=== PATIENT | female | born 1975 | race Caucasian/White ===

== ENCOUNTER 2018-03-20 06:03 | Inpatient (IN) | payer OTHER, MEDICAID, SELFPAY ==
[2018-03-20 07:35] VITALS: BP 122/71; PULSE 107; RESP 18; TEMP 37.4; O2SAT 100
--- NOTE | 2018-03-20 07:55 | PC.NURSE ---
Pt arrived from Tuesday Hbr via ambulance with ovarian mass and pain. Pt states she was told surgery would be done today. Pt kept NPO. Requested shower and is now showering. Rates pain at 5/10. States if feels worse. O2 sats = 100% on RA.
[2018-03-20 07:57] VITALS: BMI 21.7
[2018-03-20] MEDS: DEXTROSE 5%-0.9% NS 1,000 ML 100 ML IV ×2 (08:26→22:10)
[2018-03-20] MEDS: OXYCODONE IR 5 MG TABLET PO (08:32)
[2018-03-20] MEDS: ACETAMINOPHEN 325 MG TABLET 650 MG PO (08:33)
[2018-03-20 10:06] LABS: Estimated Glomerular Filt Rate > 60.0 mL/min (>60)
[2018-03-20] MEDS: CLINDAMYCIN 900 MG/50 ML PIGGYBACK 50 MG IV ×2 (12:04→19:28)
[2018-03-20] MEDS: DOCUSATE 100 MG CAPSULE PO ×2 (12:05→19:34)
[2018-03-20] MEDS: OXYCODONE/ACETAMINOPHEN 5/325 TABLET 1 TAB PO (12:18)
--- NOTE | 2018-03-20 14:37 | PC.NURSE ---
Pt taken for IUD removal at Dr Lomeli's office but was unable to remove. Plan for removal tomorrow after surgery.
[2018-03-20] MEDS: IBUPROFEN 600 MG TABLET PO ×2 (15:58→22:12)
[2018-03-20 16:07] VITALS: BP 113/62; PULSE 95; RESP 20; TEMP 36.6; O2SAT 100
[2018-03-20] MEDS: GENTAMICIN 100 MG in SODIUM CHLORIDE 0.9% 100 ML 102.5 ML IV (16:56)
[2018-03-20] MEDS: LORazepam 0.5 MG TABLET PO (19:26)
--- NOTE | 2018-03-20 21:36 | PC.NURSE ---
Pt diaphoretic and restless mid shift-reporting the need to smoke and refusing the nicotine patch ordered stating she had one before and it made me sick and I was dry heaving. Spoke to the on-call MD, ativan po ordered and given with relief. Pt now resting quietly, RR equal/unlabored. Pt reports hx of PTSD. Pain managed well with po ibuprofen, refusing narcotics as they make her feel sick. IVF per MD order. Scant brown discharge reported at beginning of shift--otherwise free of any s/sx bleeding/cramping.
[2018-03-20 22:09] VITALS: BP 100/53; PULSE 82; RESP 18; TEMP 36.8; O2SAT 100
[2018-03-21] VITALS (15 sets, daily range): BP systolic 99–131; BP diastolic 58–81; PULSE 80–110; RESP 15–20; TEMP 36.5–37.6; O2SAT 96–99; BMI 21.7
[2018-03-21] MEDS: LORazepam 0.5 MG TABLET PO (00:41)
[2018-03-21] MEDS: CLINDAMYCIN 900 MG/50 ML PIGGYBACK 50 MG IV ×3 (04:28→20:47)
[2018-03-21] MEDS: GENTAMICIN 100 MG in SODIUM CHLORIDE 0.9% 100 ML 102.5 ML IV ×2 (05:27→18:09)
[2018-03-21 06:01] LABS: HEMOLYSIS < 15 (0-50)
[2018-03-21 06:02] LABS: BUN Creatinine Ratio 21.7 (6-22); Blood Urea Nitrogen 13 mg/dL (7-17); Calcium 8.7 mg/dL (8.4-10.2); Carbon Dioxide 23 mmol/L (22-32); Chloride 107 mmol/L (98-107); Estimated Glomerular Filt Rate > 60.0 mL/min (>60); Glucose 107 mg/dL (70-100); Sodium 139 mmol/L (137-145)
[2018-03-21 06:08] LABS: Add Manual Diff / Slide Review NO; Basophils Percent Auto 0.2 % (0-2); Eosinophils Percent Auto 0.6 % (2-4); Hematocrit 36.6 % (36-46); Lymphocytes Percent Auto 10.8 % (25-40); Mean Corpuscular HGB Conc 32.9 % (30-36); Mean Corpuscular Hemoglobin 29.4 PG (26-34); Mean Corpuscular Volume 89.5 fL (80-100); Monocytes Percent Auto 8.9 % (3-14); Neutrophils Absolute Auto 12600 /uL (3000-5900); Neutrophils Percent Auto 79.5 % (50-75); Platelet Count 244 X10^3/uL (150-400); Red Blood Cell Count 4.09 X10^6/uL (4.0-5.2); Red Cell Distribution Width 12.7 % (11.6-14.8); White Blood Cell Count 15.8 X10^3/uL (4.5-11.0)
--- NOTE | 2018-03-21 06:34 | PM.GYNHP.1 ---
History of Present Illness Narrative: Misty Saeed is a 42 year old female 6 para 3 who presented from [facility] in Tuesday with a right-sided tubo-ovarian abscess She presented to the ER after several days of right-sided pain. A CT revealed a tubo-ovarian abscess on the right side. Patient has an IUD in place. This was supposed to be removed approximately 6 years ago. [facility] Social History household members: spouse Smoking Status: Current every day smoker alcohol intake: former substance use type: marijuana Meds Home Medications Medication Instructions Recorded Confirmed Type No Known Home Medications 03/20/18 03/20/18 History Allergies Allergy/AdvReac Type Severity Reaction Status Date / Time Penicillin Allergy Intermediate Hives Uncoded 03/20/18 07:50 Latex Allergy Unknown Uncoded 07/20/17 12:01 Mercury Allergy Unknown Uncoded 07/20/17 12:01 Review of Systems Review of Systems All systems reviewed & are unremarkable except as noted in HPI and below Constitutional Constitutional: Reports anorexia, Reports chills, Reports lack of energy and Reports poor appetite Eyes Eyes: Reports system reviewed; no additional complaints, except as documented ENT Ears, Nose, Mouth, and Throat: Yes system reviewed; no additional complaints, except as documented and No difficulty swallowing Cardiovascular Cardiovascular: Reports system reviewed; no additional complaints, except as documented Respiratory Respiratory: Reports system reviewed and no additional complaints, except as documented Gastrointestinal Gastrointestinal: Reports abdominal pain, Reports bloating, Denies change in bowel habits, Denies change in stool character, Denies constipation, Reports cramping, Denies dysphagia, Denies loose stools, Reports nausea and Denies vomiting Genitourinary Genitourinary: Reports vaginal discharge (Thick yellowish green), Reports vaginal odor, Denies hematuria, Reports dyspareunia, Denies urinary frequency, Denies difficulty voiding, Denies urinary urgency and Denies flank pain Musculoskeletal Musculoskeletal: Reports system reviewed; no additional complaints, except as documented Integumentary/Breasts Skin/Breast: Reports system reviewed and no additional complaints, except as documented Neurologic Neurologic: Reports system reviewed and no additional complaints, except as documented Psychiatric Psychiatric: Reports system reviewed and no additional complaints, except as documented Endocrine Endocrine: Reports system reviewed and no additional complaints, except as documented Hematologic/Lymphatic Hematologic/Lymphatic: Reports system reviewed and no additional complaints, except as documented Allergic/Immunologic Allergic/Immunologic: Reports system reviewed and no additional complaints, except as documented Exam Vital Signs (past 8 hours): - 03/21/18 00:45 03/21/18 05:45 Temperature 98.6 F 98.1 F Pulse Rate 93 H 96 H Respiratory Rate 18 18 Blood Pressure 99/58 L 106/60 Pulse Oximetry 99 97 Narrative Exam Narrative: Generally: Patient lying in bed, no acute distress Lungs: Clear to auscultation bilaterally Cardiovascular: Regular rate and rhythm Abdomen: Soft, good bowel sounds. Guarding and rebound tenderness on the right External genitalia: Normal labia minora and majora. Normal urethral meatus. Normal Bartholin's and [place]'s glands. Vagina: A bivalve speculum was placed into the vagina there is thick yellow/green discharge coming from the cervical os. Cervix: Purulent discharge. IUD string is visible and grasped with a Dolphin nose grasper. Upon pulling the string came off from the IUD. There was a small amount of bleeding noted. An attempt was made to grasp the IUD but patient could not tolerate. Bimanual exam: A 7 week size anteverted uterus. Right adnexal fullness and tenderness. Objective Labs Result Diagrams: 03/21/18 05:16 03/21/18 05:16 Labs: Laboratory Results - last 24 hr 03/20/18 03/21/18 03/21/18 09:42 05:16 05:16 WBC 15.8 H RBC 4.09 Hgb 12.0 Hct 36.6 MCV 89.5 MCH 29.4 MCHC 32.9 RDW 12.7 Plt Count 244 Neut % (Auto) 79.5 H Lymph % (Auto) 10.8 L [place] % (Auto) 8.9 Eos % (Auto) 0.6 L Baso % (Auto) 0.2 Neut # (Auto) 59802 H Sodium 139 Potassium 4.0 Chloride 107 Carbon Dioxide 23 BUN 13 Creatinine 0.70 0.60 Estimated GFR > 60.0 > 60.0 BUN/Creatinine Ratio 21.7 Glucose 107 H Calcium 8.7 Assessment & Plan (1) Right tubo-ovarian abscess: Current visit: Yes Status: Acute (2) Attempted IUD removal, unsuccessful: Current visit: Yes Status: Acute Plan: Assessment/Plan Narrative: Assessment: 42-year-old 6 para 3 with a right tubo-ovarian abscess Retained IUD Plan: Cultures obtained Will attempt IUD removal in the operating room Quality VTE Deep Vein Thrombosis/Pulmonary Embolism Present on Admission: No
--- NOTE | 2018-03-21 06:42 | P.HPOB_ITS ---
History of Present Illness Narrative: Misty Saeed is a 42 year old female 6 para 3 who presented from [facility] in Tuesday with a right-sided tubo-ovarian abscess She presented to the ER after several days of right-sided pain. A CT revealed a tubo-ovarian abscess on the right side. Patient has an IUD in place. This was supposed to be removed approximately 6 years ago. [facility] Social History household members: spouse Smoking Status: Current every day smoker alcohol intake: former substance use type: marijuana Meds Home Medications Medication Instructions Recorded Confirmed Type No Known Home Medications 03/20/18 03/20/18 History Allergies Allergy/AdvReac Type Severity Reaction Status Date / Time Penicillin Allergy Intermediate Hives Uncoded 03/20/18 07:50 Latex Allergy Unknown Uncoded 07/20/17 12:01 Mercury Allergy Unknown Uncoded 07/20/17 12:01 Review of Systems Review of Systems All systems reviewed & are unremarkable except as noted in HPI and below Constitutional Constitutional: Reports anorexia, Reports chills, Reports lack of energy and Reports poor appetite Eyes Eyes: Reports system reviewed; no additional complaints, except as documented ENT Ears, Nose, Mouth, and Throat: Yes system reviewed; no additional complaints, except as documented and No difficulty swallowing Cardiovascular Cardiovascular: Reports system reviewed; no additional complaints, except as documented Respiratory Respiratory: Reports system reviewed and no additional complaints, except as documented Gastrointestinal Gastrointestinal: Reports abdominal pain, Reports bloating, Denies change in bowel habits, Denies change in stool character, Denies constipation, Reports cramping, Denies dysphagia, Denies loose stools, Reports nausea and Denies vomiting Genitourinary Genitourinary: Reports vaginal discharge (Thick yellowish green), Reports vaginal odor, Denies hematuria, Reports dyspareunia, Denies urinary frequency, Denies difficulty voiding, Denies urinary urgency and Denies flank pain Musculoskeletal Musculoskeletal: Reports system reviewed; no additional complaints, except as documented Integumentary/Breasts Skin/Breast: Reports system reviewed and no additional complaints, except as documented Neurologic Neurologic: Reports system reviewed and no additional complaints, except as documented Psychiatric Psychiatric: Reports system reviewed and no additional complaints, except as documented Endocrine Endocrine: Reports system reviewed and no additional complaints, except as documented Hematologic/Lymphatic Hematologic/Lymphatic: Reports system reviewed and no additional complaints, except as documented Allergic/Immunologic Allergic/Immunologic: Reports system reviewed and no additional complaints, except as documented Exam Vital Signs (past 8 hours): - 03/21/18 00:45 03/21/18 05:45 Temperature 98.6 F 98.1 F Pulse Rate 93 H 96 H Respiratory Rate 18 18 Blood Pressure 99/58 L 106/60 Pulse Oximetry 99 97 Narrative Exam Narrative: Generally: Patient lying in bed, no acute distress Lungs: Clear to auscultation bilaterally Cardiovascular: Regular rate and rhythm Abdomen: Soft, good bowel sounds. Guarding and rebound tenderness on the right External genitalia: Normal labia minora and majora. Normal urethral meatus. Normal Bartholin's and [place]'s glands. Vagina: A bivalve speculum was placed into the vagina there is thick yellow/ green discharge coming from the cervical os. Cervix: Purulent discharge. IUD string is visible and grasped with a Dolphin nose grasper. Upon pulling the string came off from the IUD. There was a small amount of bleeding noted. An attempt was made to grasp the IUD but patient could not tolerate. Bimanual exam: A 7 week size anteverted uterus. Right adnexal fullness and tenderness. Objective Labs Result Diagrams: 03/21/18 05:16 03/21/18 05:16 Labs: Laboratory Results - last 24 hr 03/20/18 03/21/18 03/21/18 09:42 05:16 05:16 WBC 15.8 H RBC 4.09 Hgb 12.0 Hct 36.6 MCV 89.5 MCH 29.4 MCHC 32.9 RDW 12.7 Plt Count 244 Neut % (Auto) 79.5 H Lymph % (Auto) 10.8 L [place] % (Auto) 8.9 Eos % (Auto) 0.6 L Baso % (Auto) 0.2 Neut # (Auto) 92673 H Sodium 139 Potassium 4.0 Chloride 107 Carbon Dioxide 23 BUN 13 Creatinine 0.70 0.60 Estimated GFR > 60.0 > 60.0 BUN/Creatinine Ratio 21.7 Glucose 107 H Calcium 8.7 Assessment & Plan (1) Right tubo-ovarian abscess: Current visit: Yes Status: Acute (2) Attempted IUD removal, unsuccessful: Current visit: Yes Status: Acute Plan: Assessment/Plan Narrative: Assessment: 42-year-old 6 para 3 with a right tubo-ovarian abscess Retained IUD Plan: Cultures obtained Will attempt IUD removal in the operating room Quality VTE Deep Vein Thrombosis/Pulmonary Embolism Present on Admission: No
[2018-03-21] MEDS: DEXTROSE 5%-0.9% NS 1,000 ML 100 ML IV (09:25)
[2018-03-21] MEDS: HYDROMORPHONE 1 MG INJ IV ×2 (10:07→13:27)
--- NOTE | 2018-03-21 10:23 | CM.DANOTE ---
DCP: assessment: case received, EMR reviewed and met with pt. Introduced self and role. Pt is a 42 year old female who admitted yesterday to care of Dr. Ej Lomeli after being sent from [facility]. Payer: [place] [employer]. Pt is very groggy and nods off during this initial meeting. She does confirm she and her partner Thai live in a treehouse...sounds like does not have to climb stairs to entry but she is very vague at this point. Pt going to OR today/planned early afternoon. Is being treatmetn isaias a R tubo ovarian abscess and an old IUD will be removed surgically. It is noted that pt carries dx of PTSD and her living situation is unclear at this point. Assured her that the d/c planning team will be talking with her again when she is clearer and feeling better. Consider a CM/social media job titles consult as POC unfolds. Discussed with colleague/LAURA Gutierrez.
--- NOTE | 2018-03-21 13:50 | SUR.HOLD ---
This author (RN) went to pt's room to bring pt. down to pre-op; noted pt. to be in significant pain. Asked pt. how bad the pain was she (the pt.) responded with 4-5, this was at 1315. Pt. moaning loudly and yelling out profanity due to the level of pain the pt. was experiencing. This author notified the RN that the pt. should be medicated before being taken down to pre-op, nurse agreed. Pt. pain was progressively getting worse within minutes. At 1325 pt. rated pain at 8-9, states (the pt) it was her right ovary. At 1327 pt. was medicated with 1 mg of dilauded iv with immediate relief. Pt. then brought down to pre-op holding. upon arrival to holding pt. rated pain at 2
--- NOTE | 2018-03-21 14:10 | PC.NURSE ---
1325 Pt gone to OR via bed. Med for c/o pain prior to going.
[2018-03-21] MEDS: LACTATED RINGERS 1,000 ML 42 ML IV (14:25)
--- NOTE | 2018-03-21 15:30 | SUR.OPER ---
Supine on padded OR bed, head on pillow, arms secured on padded arm boards at <90 degrees abduction, legs uncrossed, safety belt at thigh, tape over blanket over lower legs.
--- NOTE | 2018-03-21 16:23 | PC.NURSE ---
Pt arrived by back PACU @ 1600. A&Ox3, reporting no pain and no discharge. Cont. pulse ox on reading 99%. Spoke with MD, telephone order to resume all pre-op orders.
[2018-03-21 18:03] LABS: Gentamicin Trough < 0.6 ug/mL (0.0-2.0)
[2018-03-21] MEDS: GENTAMICIN TROUGH 1 REQUEST MISC (18:09)
[2018-03-21 20:11] LABS: Gentamicin Peak 4.7 ug/mL (5.0-8.0)
[2018-03-21] MEDS: DOCUSATE 100 MG CAPSULE PO (20:47)
[2018-03-21] MEDS: IBUPROFEN 600 MG TABLET PO (20:47)
[2018-03-22] MEDS: DEXTROSE 5%-0.9% NS 1,000 ML 100 ML IV ×2 (02:24→20:13)
[2018-03-22 03:00] VITALS: BP 134/73; PULSE 76; RESP 18; TEMP 36.6; O2SAT 99
[2018-03-22] MEDS: CLINDAMYCIN 900 MG/50 ML PIGGYBACK 50 MG IV ×3 (04:08→20:14)
[2018-03-22] MEDS: GENTAMICIN 140 MG in SODIUM CHLORIDE 0.9% 100 ML 103.5 ML IV (06:33)
--- NOTE | 2018-03-22 06:50 | PM.PNPO.1 ---
Subjective Date Patient Seen: 03/21/18 Time Patient Seen: 13:30 Interval history: Patient is a 42-year-old 6 para 3 who was admitted for a right tubo-ovarian abscess An attempt was made to remove her IUD yesterday but the string came off of the IUD. She could not tolerate the IUD removal in the office. Had increased pain last night. No nausea or vomiting. Exam Vital Signs (past 8 hours): - 03/21/18 23:51 03/22/18 03:00 Temperature 97.7 F 97.9 F Pulse Rate 80 76 Respiratory Rate 16 18 Blood Pressure 103/65 134/73 Pulse Oximetry 98 99 Oxygen Delivery Method Room Air Oxygen Flow Rate 0 Narrative Exam Narrative: Generally: Patient lying in bed, no acute distress Lungs: Clear to auscultation bilaterally Cardiovascular: Regular rate and rhythm Abdomen: Soft and flat. Good bowel sounds. Still with tenderness on the right side. Extremities: Negative Homans Objective Labs Result Diagrams: 03/21/18 05:16 03/21/18 05:16 Labs: Laboratory Results - last 24 hr 03/21/18 03/21/18 17:15 19:40 Gentamicin Peak 4.7 L Gentamicin Trough < 0.6 Assessment & Plan Post-op (1) Right tubo-ovarian abscess: Current Visit: Yes Status: Acute (2) Attempted IUD removal, unsuccessful: Current Visit: Yes Status: Acute Assessment and plan: Assessment: 42-year-old 6 para 3 with a right tubo-ovarian abscess IUD in place, unable to remove in the office Plan: To the operating room later this afternoon for IUD removal Postoperative Procedures Operation Date: 03/21/18 14:30 Actual Procedures Side Surgeon p Intrauterine Device Insertion Removal Poornima Lomeli MD Quality VTE Deep Vein Thrombosis/Pulmonary Embolism Present on Admission: No
--- NOTE | 2018-03-22 06:53 | PM.GYNOP.1 ---
Operative Date/Time/Diagnoses Date of procedure: 03/21/18 Time of procedure: 15:15 Pre-op diagnosis: Retained IUD Patient unable to tolerate removal in the office Post-op diagnosis: same Procedure: Procedures Operation Date: 03/21/18 14:30 Actual Procedures Side Surgeon p Intrauterine Device Insertion Removal Poornima Lomeli MD Indications: Retained IUD Patient unable to tolerate removal in the office Surgeon: Poornima Lomeli Anesthesia Type: General (LMA) Operative Notes Findings: IUD stuck in the lower uterine segment Closure Type: not applicable Specimen(s): none Estimated blood loss (mL): 3 Blood products transfused: none Procedure in detail: After informed consent was obtained, the patient was taken to the operating room where she was placed in the dorsal supine position. After adequate LMA general anesthesia was achieved, she was placed in the dorsal lithotomy position, and prepped and draped in the usual sterile fashion. A time-out was performed. A bivalve speculum was placed into the vagina. A single-tooth tenaculum was placed on the anterior lip of the cervix. A polyp forceps was placed into the uterus in an attempt to remove the IUD but was unsuccessful. The cervical os was dilated to the # 7 Hegar dilator. Upon pulling out the dilator, the IUD came with the Hegar dilator. The single-tooth tenaculum was removed from the anterior lip of the cervix. The bivalve speculum was removed from the vagina. Sponge, lap, and instrument counts were correct x2. The patient tolerated the procedure well, and was taken to PACU in stable condition. Complications: none Post-operative Condition: stable Disposition: PACU Plan for aftercare: To acute care after recovery
[2018-03-22 07:30] VITALS: BP 113/63; PULSE 73; RESP 16; TEMP 37; O2SAT 97
[2018-03-22 11:15] VITALS: BP 119/66; PULSE 85; RESP 16; TEMP 36.8; O2SAT 98
[2018-03-22 11:22] LABS: Add Manual Diff / Slide Review NO; Basophils Percent Auto 0.1 % (0-2); Eosinophils Percent Auto 0.2 % (2-4); Hematocrit 34.3 % (36-46); Hemoglobin 11.5 g/dL (12.0-16.0); Lymphocytes Percent Auto 5.1 % (25-40); Mean Corpuscular HGB Conc 33.6 % (30-36); Mean Corpuscular Hemoglobin 29.8 PG (26-34); Mean Corpuscular Volume 88.9 fL (80-100); Monocytes Percent Auto 4.5 % (3-14); Neutrophils Absolute Auto 21600 /uL (3000-5900); Neutrophils Percent Auto 90.1 % (50-75); Platelet Count 290 X10^3/uL (150-400); Red Blood Cell Count 3.86 X10^6/uL (4.0-5.2); Red Cell Distribution Width 12.9 % (11.6-14.8)
[2018-03-22] MEDS: DOCUSATE 100 MG CAPSULE PO ×2 (11:32→20:14)
--- NOTE | 2018-03-22 14:46 | PC.NURSE ---
1430 Pt has remained on bedrest all this shift except for BRP. Pt has denied pain. Dr Lomeli in earlier to assess Pt and the lab results. updated on the Pts LUE swelling from a infiltrated IV last PM. Have kept the arm up on pillows & warm blankets to arm as well. Pt refuses a [employer]IL[employer] regarding Pt being homeless. IVF cont to IV site RFA, Pt with poor/fair appetite. Pt sleeping most the time.
[2018-03-22] MEDS: IBUPROFEN 600 MG TABLET PO ×2 (16:00→21:18)
[2018-03-22 17:07] VITALS: BP 128/79; PULSE 79; RESP 17; TEMP 36.8; O2SAT 92
[2018-03-22 18:14] LABS: Gentamicin Trough 0.6 ug/mL (0.0-2.0)
[2018-03-22] MEDS: GENTAMICIN 140 MG in SODIUM CHLORIDE 0.9% 100 ML 103 ML IV (18:34)
[2018-03-22 20:48] LABS: Gentamicin Peak 6.9 ug/mL (5.0-8.0)
[2018-03-22 23:45] VITALS: BP 131/76; PULSE 84; RESP 16; TEMP 36.9; O2SAT 99
[2018-03-23] MEDS: CLINDAMYCIN 900 MG/50 ML PIGGYBACK 50 MG IV ×2 (03:54→12:32)
[2018-03-23 03:57] VITALS: BP 135/85; PULSE 82; RESP 15; TEMP 36.9; O2SAT 97
[2018-03-23] MEDS: IBUPROFEN 600 MG TABLET PO ×2 (04:44→13:33)
[2018-03-23] MEDS: GENTAMICIN 140 MG in SODIUM CHLORIDE 0.9% 100 ML 103 ML IV (05:41)
[2018-03-23 07:40] VITALS: BP 131/82; PULSE 87; RESP 16; TEMP 36.6; O2SAT 99
[2018-03-23] MEDS: DEXTROSE 5%-0.9% NS 1,000 ML 100 ML IV (08:31)
[2018-03-23] MEDS: ACETAMINOPHEN 325 MG TABLET 650 MG PO (08:34)
[2018-03-23 09:11] LABS: Add Manual Diff / Slide Review NO; Eosinophils Percent Auto 0.2 % (2-4); Hematocrit 32.3 % (36-46); Hemoglobin 10.9 g/dL (12.0-16.0); Lymphocytes Percent Auto 13.9 % (25-40); Mean Corpuscular HGB Conc 33.7 % (30-36); Mean Corpuscular Hemoglobin 29.5 PG (26-34); Mean Corpuscular Volume 87.5 fL (80-100); Monocytes Percent Auto 8.5 % (3-14); Neutrophils Absolute Auto 10600 /uL (3000-5900); Neutrophils Percent Auto 76.4 % (50-75); Platelet Count 304 X10^3/uL (150-400); Red Blood Cell Count 3.69 X10^6/uL (4.0-5.2); Red Cell Distribution Width 13.1 % (11.6-14.8); White Blood Cell Count 13.9 X10^3/uL (4.5-11.0)
[2018-03-23] MEDS: HYDROMORPHONE 1 MG INJ IV (10:00)
[2018-03-23] MEDS: OXYCODONE/ACETAMINOPHEN 5/325 TABLET 1 TAB PO (13:37)
--- NOTE | 2018-05-11 16:18 | PM.DS.1 ---
History of Present Illness Date Patient Seen: 03/23/18 Time Patient Seen: 13:30 Chief complaint: Ovarian Mass Narrative: Patient is a 42-year-old who was admitted on 03/20/2019 with a right tubo-ovarian abscess. She had an IUD in place. An attempt was made to remove this in the office but patient was unable to tolerate it. This was removed under anesthesia on 03/21/2019. Patient was started on IV antibiotics upon admission. These continued through to discharge on 03/23/2019. She was sent home on oral antibiotics. Over the course of her hospitalization, her right lower quadrant pain significantly decreased. Discharge Providers Date of admission: 03/20/18 06:03 Discharge provider: Poornima Lomeli MD Discharge Date: 03/23/18 Summary Discharge Diagnosis: Right tubo-ovarian abscess Retained IUD Hospital Course: Patient was admitted on 03/20/2019 with a right tubo-ovarian abscess. She was started on IV antibiotics. She had an IUD in place. This was unable to be removed in the office on 03/20/2019. On 03/21/2019 she was taken to the operating room the IUD was removed under anesthesia. Over the course of her hospitalization her right lower quadrant pain significantly decreased. She was discharged home on oral antibiotics to follow up at 2 weeks. She was sent home on metronidazole and doxycycline. Exam Vital Signs (past 8 hours): Oxygen Delivery Method Room Air Oxygen Flow Rate 0 Narrative Exam Narrative: Generally: A well-developed, well-nourished white female, no acute distress Abdomen: Soft and flat. No guarding or rebound tenderness. Objective Labs Result Diagrams: 03/23/18 09:00 03/21/18 05:16 Discharge Plan Discharge Plan Patient Disposition: Home Discharge comment: Call with fever, chills, worsening abdominal pain, nausea or vomiting Call [phone] Discharge Med Rec/Prescriptions Prescriptions: New doxycycline hyclate 100 mg capsule 100 mg PO BID Qty: 28 RF: 0 metronidazole [Flagyl] 500 mg tablet 500 mg PO BID Qty: 28 RF: 0 acetaminophen-codeine [Tylenol-Codeine #3] 300-30 mg tablet 1 tab PO Q4-6H PRN (Reason: pain) Qty: 20 RF: 0 ibuprofen 600 mg tablet 600 mg PO TID PRN (Reason: pain) Qty: 30 RF: 2 No Action No Known Home Medications RF: 0 Follow up/Referrals: Poornima Lomeli MD [Physician] - 1 Month (please call & schedule a 1 month hospital follow up with dr lomeli [phone]) Provider Discharge Instructions Diet: Diet as Tolerated Activity: No intercourse until follow up Skin/Wound/Dressing Care Report to your healthcare provider any signs of infection, such as:: chills, fever, night sweats, increased pain and unusual drainage Visit Report/Discharge Packet Instructions: DI for Intrauterine Device Removal, Acetaminophen and Codeine, Doxycycline, Metronidazole Visit Report Forms: Stroke Signs & Symptoms Discharge Data Attending Provider: Poornima Lomeli Admit Date/Time: 03/20/18 06:03 Discharges patient from system. Discharge Date/Time: 03/23/18 14:15 Quality VTE Deep Vein Thrombosis/Pulmonary Embolism Present on Admission: No
--- NOTE | 2018-05-11 16:22 | P.DS_ITS ---
History of Present Illness Date Patient Seen: 03/23/18 Time Patient Seen: 13:30 Chief complaint: Ovarian Mass Narrative: Patient is a 42-year-old who was admitted on 03/20/2019 with a right tubo-ovarian abscess. She had an IUD in place. An attempt was made to remove this in the office but patient was unable to tolerate it. This was removed under anesthesia on 2018. Patient was started on IV antibiotics upon admission. These continued through to discharge on 03/23/2019. She was sent home on oral antibiotics. Over the course of her hospitalization, her right lower quadrant pain significantly decreased. Discharge Providers Date of admission: 03/20/18 06:03 Discharge provider: Poornima Lomeli MD Discharge Date: 03/23/18 Summary Discharge Diagnosis: Right tubo-ovarian abscess Retained IUD Hospital Course: Patient was admitted on 03/20/2019 with a right tubo-ovarian abscess. She was started on IV antibiotics. She had an IUD in place. This was unable to be removed in the office on 03/20/2019. On 03/21/2019 she was taken to the operating room the IUD was removed under anesthesia. Over the course of her hospitalization her right lower quadrant pain significantly decreased. She was discharged home on oral antibiotics to follow up at 2 weeks. She was sent home on metronidazole and doxycycline. Exam Vital Signs (past 8 hours): Oxygen Delivery Method Room Air Oxygen Flow Rate 0 Narrative Exam Narrative: Generally: A well-developed, well-nourished white female, no acute distress Abdomen: Soft and flat. No guarding or rebound tenderness. Objective Labs Result Diagrams: 03/23/18 09:00 03/21/18 05:16 Discharge Plan Discharge Plan Patient Disposition: Home Discharge comment: Call with fever, chills, worsening abdominal pain, nausea or vomiting Call [phone] Discharge Med Rec/Prescriptions Prescriptions: New doxycycline hyclate 100 mg capsule 100 mg PO BID Qty: 28 RF: 0 metronidazole [Flagyl] 500 mg tablet 500 mg PO BID Qty: 28 RF: 0 acetaminophen-codeine [Tylenol-Codeine #3] 300-30 mg tablet 1 tab PO Q4-6H PRN (Reason: pain) Qty: 20 RF: 0 ibuprofen 600 mg tablet 600 mg PO TID PRN (Reason: pain) Qty: 30 RF: 2 No Action No Known Home Medications RF: 0 Follow up/Referrals: Poornima Lomeli MD [Physician] - 1 Month (please call & schedule a 1 month hospital follow up with dr lomeli [phone]) Provider Discharge Instructions Diet: Diet as Tolerated Activity: No intercourse until follow up Skin/Wound/Dressing Care Report to your healthcare provider any signs of infection, such as:: chills, fever, night sweats, increased pain and unusual drainage Visit Report/Discharge Packet Instructions: DI for Intrauterine Device Removal, Acetaminophen and Codeine, Doxycycline, Metronidazole Visit Report Forms: Stroke Signs & Symptoms Discharge Data Attending Provider: Poornima Lomeli Admit Date/Time: 03/20/18 06:03 Discharges patient from system. Discharge Date/Time: 03/23/18 14:15 Quality VTE Deep Vein Thrombosis/Pulmonary Embolism Present on Admission: No
== END 2018-03-23 14:15 | disposition home or self-care (01) | DRG 532 ==
PROVIDERS: Admitting Provider Obstetrics & Gynecology; Visit Provider Obstetrics & Gynecology
PROC: 0UPD7HZ Removal of Contraceptive Device from Uterus and Cervix, Via Natural or Artificial Opening (ICD-10-PCS; principal; 2018-03-21 14:30)
DX: T83.39XA Other mechanical complication of intrauterine contraceptive device, initial encounter (principal); N70.93 Salpingitis and oophoritis, unspecified; F17.210 Nicotine dependence, cigarettes, uncomplicated
CPT/HCPCS: 36415; 80048; 80170; 82565; 85025; 99406; J1100; J1170; J2405; J2704; J3010

== ENCOUNTER → 2018-03-20 17:07 | Outpatient (CLI) | payer OTHER, MEDICAID, SELFPAY ==
[2018-03-20 07:57] VITALS: BMI 21.7
== END ==
PROVIDERS: Visit Provider Obstetrics & Gynecology
DX: N89.8 Other specified noninflammatory disorders of vagina (principal)
CPT/HCPCS: 87070; 87075; 87077; 87205

== ENCOUNTER 2020-10-28 10:06 | Emergency (ER) | payer OTHER, MEDICAID, SELFPAY ==
[2020-10-28] VITALS (9 sets, daily range): BP systolic 119–153; BP diastolic 77–92; PULSE 103–125; RESP 18–24; TEMP 37.7; O2SAT 99–100; BMI 21.7
--- NOTE | 2020-10-28 10:25 | ED.ABDPAIN ---
HPI - Abdominal Pain General Chief Complaint: Abdominal Pain Stated Complaint: MASSIVE TUMOR ON RIGHT OVARY Time Seen by Provider: 10/28/20 10:12 Source: patient Mode of arrival: Ambulatory Limitations: no limitations History of Present Illness HPI narrative: Patient is a 45-year-old female who has a history of a right tubo-ovarian abscess secondary to a dislodged IUD in 2019 presenting today with right flank pain and right lower quadrant pain. Ongoing for the last day or so. She says it is constant in nature but does have sharp spikes. She occasionally feels nauseous. She has some flank pain that seems to radiate around to her lower abdomen. She is afebrile but currently tachycardic. She actually says it started fiber 6 days ago with UTI like symptoms. She states hydrated and drink cranberry juice and cranberry pills. And then started having right-sided flank pain. Denies any chest pain or palpitations no shortness of breath. Related Data Previous Rx's Medication Instructions Recorded acetaminophen 300 mg-codeine 30 mg 1 tab PO Q4-6H PRN #20 tab 03/23/18 tablet (Tylenol-Codeine #3) doxycycline hyclate 100 mg capsule 100 mg PO BID #28 cap 03/23/18 ibuprofen 600 mg tablet 600 mg PO TID PRN #30 tab 03/23/18 metronidazole 500 mg tablet 500 mg PO BID #28 tab 03/23/18 (Flagyl) cefdinir 300 mg capsule 300 mg PO Q12H #20 cap 10/28/20 Allergies Allergy/AdvReac Type Severity Reaction Status Date / Time Penicillins Allergy Intermediate Hives Unverified 03/21/18 20:33 latex Allergy Unknown Unverified 03/21/18 20:33 Mercury Allergy Unknown Uncoded 07/20/17 12:01 Review of Systems Review of Systems Narrative: GENERAL: Denies chills, fatigue, malaise, fever, sweats, travel HEENT: Denies sinus pain, ear pain, sore throat, difficulty swallowing, neck pain RESPIRATORY: Denies dyspnea, cough, wheezing, hemoptysis, sputum. CARDIOVASCULAR: Denies chest pain, palpitations, orthopnea, edema GASTROINTESTINAL: + nausea,+ vomiting,+ abdominal pain : Right flank pain, see HPI MUSCULOSKELETAL: Denies weakness, joint pain, or bony pain SKIN: No rash, no erythema, no pruritus NEUROLOGIC: Denies weakness, dizziness, headache, numbness, change in speech, confusion PSYCHIATRIC: No concerning psychosocial issues. 12 point review of systems is negative except for those stated above and HPI Patient History Social History (Updated 03/21/18 @ 06:36 by Poornima Lomeli MD) household members: spouse Smoking Status: Current every day smoker alcohol intake: former substance use type: marijuana Smoking Status: Current every day smoker alcohol intake frequency: 0-2 drinks per day Substance Use Type: marijuana Exam Initial Vital Signs Initial Vital Signs: Vital Signs Temperature 99.8 F H 10/28/20 10:14 Pulse Rate 125 H 10/28/20 10:14 Respiratory Rate 20 10/28/20 10:14 Blood Pressure 153/92 H 10/28/20 10:14 Pulse Oximetry 99 10/28/20 10:14 GENERAL: Alert 45-year-old female appears uncomfortable HEENT: Head atraumatic,EOMI, pupils reactive, face symmetric, moist mucous membranes CARDIOVASCULAR: Regular rate and rhythm without murmurs, rubs or gallops. RESPIRATORY: Breath sounds equal bilaterally, no wheezes rales or rhonchi. ABDOMEN: Soft right lower quadrant tenderness no guarding no rebound negative Ramirez sign no right upper quadrant tenderness : Right CVA tenderness EXTREMITIES: Normal range of motion, no clubbing or edema. Neurovascularly intact NEUROLOGICAL: Alert and oriented x4.Normal gait and speech. SKIN: Warm, dry, no laceration, no petechiae, no rashes or lesions. Course Orders Ordered: ED Orders 10/28/20 11:06 Blood Culture Stat Discontinued Medications Sodium Chloride (Normal Saline 0.9%) 500 mls @ 1,000 mls/hr IV BOLUS ONE Stop: 10/28/20 10:53 Last Infusion: 10/28/20 12:30 Dose: 0 mls/hr Documented by: Admin: 10/28/20 11:15 Dose: 1,000 mls/hr Documented by: ATAYLOR Ceftriaxone Sodium 1,000 mg/ (Sodium Chloride) 100 mls @ 200 mls/hr IV NOW ONE Stop: 10/28/20 10:41 Last Infusion: 10/28/20 12:14 Dose: 0 mls/hr Documented by: Admin: 10/28/20 11:15 Dose: 200 mls/hr Documented by: ATAYLOR Sodium Chloride (Normal Saline 0.9%) 1,000 mls @ 1,000 mls/hr IV BOLUS ONE Stop: 10/28/20 13:27 Last Infusion: 10/28/20 13:31 Dose: 0 mls/hr Documented by: Admin: 10/28/20 12:31 Dose: 1,000 mls/hr Documented by: MILA Ketorolac Tromethamine (Ketorolac 30 Mg/Ml Vial) 30 mg IV NOW ONE Stop: 10/28/20 10:25 Last Admin: 10/28/20 11:14 Dose: 30 mg Documented by: MILA Ondansetron HCl (Ondansetron 4 Mg/2 Ml Inj) 4 mg IV NOW ONE Stop: 10/28/20 10:25 Last Admin: 10/28/20 11:14 Dose: 4 mg Documented by: MILA Vital Signs Vital signs: Vital Signs - 8 hr 10/28/20 12:00 10/28/20 12:30 10/28/20 13:00 Pulse Rate 110 H 104 H 103 H Respiratory Rate 20 20 21 Blood Pressure 119/78 127/77 Pulse Oximetry 99 100 100 10/28/20 13:30 Pulse Rate 103 H Respiratory Rate 24 Blood Pressure Pulse Oximetry 100 MDM - Abdominal Pain Lab Data Result diagrams: 10/28/20 10:45 10/28/20 10:45 Labs: Lab Results 10/28/20 10/28/20 10/28/20 Range/Units 10:35 10:45 10:45 WBC 18.2 H (4.5-11.0) X10^3/uL RBC 4.43 (4.0-5.2) X10^6/uL Hgb 13.4 (12.0-16.0) g/dL Hct 39.8 (36-46) % MCV 89.9 (80-100) fL MCH 30.4 (26-34) PG MCHC 33.8 (30-36) % RDW 12.8 (11.6-14.8) % Plt Count 211 (150-400) X10^3/uL Neut % (Auto) 85.9 H (50-75) % Lymph % (Auto) 4.7 L (25-40) % [place] % (Auto) 9.0 (3-14) % Eos % (Auto) 0.1 L (2-4) % Baso % (Auto) 0.3 (0-2) % Neut # (Auto) 54407 H (8148-7053) /uL Lymph # (Auto) 900 L (7154-3770) /uL [place] # (Auto) 1600 H (0-900) /uL Eos # (Auto) 0 (0-450) /uL Baso # (Auto) 100 (0-100) /uL Sodium 133 L (137-145) mmol/L Potassium 3.7 (3.4-5.1) mmol/L Chloride 102 (98-107) mmol/L Carbon Dioxide 26 (22-32) mmol/L BUN 11 (7-17) mg/dL Creatinine 0.72 (0.52-1.04) mg/dL Estimated GFR > 60.0 (>60) mL/min BUN/Creatinine Ratio 15.3 (6-22) Glucose 119 H (70-100) mg/dL Lactate (0.7-2.1) mmol/L Calcium 8.8 (8.4-10.2) mg/dL Total Bilirubin 0.5 (0.2-1.3) mg/dL AST 26 (14-36) IU/L ALT 25 (<35) IU/L Alkaline Phosphatase 76 (38-126) U/L Total Protein 6.8 (6.3-8.2) g/dL Albumin 3.5 (3.5-5.0) g/dL Globulin 3.3 (1.7-4.1) g/dL Albumin/Globulin Ratio 1.1 (1.0-2.8) Lipase 20 L (23-300) U/L Urine RBC 1-5/hpf (0-5/HPF) Urine WBC >100/hpf H (0-5/HPF) Ur Squamous Epith Cells 1-5 /hpf (0-5/HPF) Urine Bacteria Many (>30) H (None) Ur Culture Indicated? Specimen cultured 10/28/20 10/28/20 Range/Units 10:45 13:05 WBC (4.5-11.0) X10^3/uL RBC (4.0-5.2) X10^6/uL Hgb (12.0-16.0) g/dL Hct (36-46) % MCV (80-100) fL MCH (26-34) PG MCHC (30-36) % RDW (11.6-14.8) % Plt Count (150-400) X10^3/uL Neut % (Auto) (50-75) % Lymph % (Auto) (25-40) % [place] % (Auto) (3-14) % Eos % (Auto) (2-4) % Baso % (Auto) (0-2) % Neut # (Auto) (0140-4866) /uL Lymph # (Auto) (4692-2443) /uL [place] # (Auto) (0-900) /uL Eos # (Auto) (0-450) /uL Baso # (Auto) (0-100) /uL Sodium (137-145) mmol/L Potassium (3.4-5.1) mmol/L Chloride (98-107) mmol/L Carbon Dioxide (22-32) mmol/L BUN (7-17) mg/dL Creatinine (0.52-1.04) mg/dL Estimated GFR (>60) mL/min BUN/Creatinine Ratio (6-22) Glucose (70-100) mg/dL Lactate 2.2 H 0.6 L (0.7-2.1) mmol/L Calcium (8.4-10.2) mg/dL Total Bilirubin (0.2-1.3) mg/dL AST (14-36) IU/L ALT (<35) IU/L Alkaline Phosphatase (38-126) U/L Total Protein (6.3-8.2) g/dL Albumin (3.5-5.0) g/dL Globulin (1.7-4.1) g/dL Albumin/Globulin Ratio (1.0-2.8) Lipase (23-300) U/L Urine RBC (0-5/HPF) Urine WBC (0-5/HPF) Ur Squamous Epith Cells (0-5/HPF) Urine Bacteria (None) Ur Culture Indicated? Point of care testing: Point of Care Testing Test Results Negative Urine Dip Bedside Urine Glucose Negative Bedside Urine Bilirubin - Negative Bedside Urine Ketone - Negative Urine Specific [place] 1.015 Bedside Urine Occult Blood ++ Bedside Urine pH 6.0 Bedside Urine Protein ++ 100 Bedside Urine Urobilinogen - Negative Bedside Urine Nitrite + Positive Bedside Urine Leukocytes ++ [address] scan - abdomen/pelvis: Radiologist's Impression: PROCEDURE: CT ABDOMEN PELVIS W CON INDICATIONS: right flank and lower quad pain TECHNIQUE: After the administration of intravenous contrast, axial sections acquired from the lung bases to the pubic symphysis. Coronal and sagittal reformats were performed. For radiation dose reduction, the following was used: automated exposure control, adjustment of mA and/or kV according to patient size. COMPARISON: [facility], , CT ABDOMEN/PELVIS WITH CONTRAST, 03/19/2018, 21:36. FINDINGS: Image quality: Excellent. Lung bases: Unremarkable. Heart: No significant findings. ABDOMEN: Liver: Unremarkable. Gallbladder: Gallbladder is normal. Biliary ducts: Unremarkable. Pancreas: Unremarkable. Spleen: Unremarkable. Adrenal Glands: Unremarkable. Kidneys and Ureters: There are multiple foci of decreased enhancement of kidneys bilaterally, compatible with pyelonephritis. Small 2 mm nonobstructive stones are seen in kidneys bilaterally. No hydronephrosis. There is perinephric stranding bilaterally and trace perinephric fluid. Stomach and Bowel: Appendix is normal. There is a large amount of stool in colon. Stomach, small bowel loops, and colon are unremarkable. Peritoneum: No abnormal intraperitoneal fluid. No free air. Ventral Wall: No hernias. Abdominal Nodes: No retroperitoneal or mesenteric adenopathy by size criteria. Vessels: Aorta and inferior vena cava are normal in size. PELVIS: Pelvic Organs: Uterus is unremarkable. There are physiological cyst in the left ovary. Right ovary is grossly normal. No pathological free-fluid in the cul-de-sac.. Bladder: Unremarkable. Pelvic Nodes: No enlarged lymph nodes. Miscellaneous: No hernias are seen. Bones: Unremarkable. IMPRESSION: 1. Pyelonephritis bilaterally, worse in the right kidney than left kidney. 2. Nonobstructive renal calculi bilaterally. 3. Normal appendix. The result was discussed with Dr. Ochoa. Dictated by: Riddhi Ewing M.D. on 10/28/2020 at 12:04 ECG Data Interpretation: Sinus tachycardia rate 115 p.r. interval 130 QRS [address] changes or T-wave inversions MDM Narrative Medical decision making narrative: The patient has low-grade fever 99.8 leukocytosis of 18 UTI and pyelonephritis. Lactate improved with IV fluids pain also improved with pain medication she is given a dose of Rocephin in the emergency department. She overall appears clinically better. No evidence of severe sepsis. Hemodynamically stable while in the emergency department. There is possibility blood cultures may be positive I discussed this with her. We would notify her if they were positive in the next 2-3 days at which point she would need to return to the emergency department at this time she understands and agrees. His at this time she would like to go home and I think this is reasonable. Discharge Plan Departure Patient Disposition: Home Clinical Impression: UTI (urinary tract infection) Qualifiers: Urinary tract infection type: acute pyelonephritis Qualified Code(s): N10 - Acute pyelonephritis Instructions: Kidney Infection Activity Restrictions/Additional Instructions: *You have been diagnosed with kidney infection *What to do: Please increase fluid intake. You do have an infection. Take Tylenol and ibuprofen as directed if needed for pain. Your blood cultures will return in the next 2-3 days. He may receive a call from us only if they are positive. *Continue to take medications as directed Cefdinir 300 mg twice daily for 7 days *Follow up with your primary care provider in 2-3 days *Return to ER if you should have increasing pain, inability to tolerate pills or antibiotics, or any new, worsening or concerning symptoms Prescriptions: New cefdinir 300 mg capsule 300 mg PO Q12H Qty: 20 RF: 0 No Action doxycycline hyclate 100 mg capsule 100 mg PO BID Qty: 28 RF: 0 metronidazole [Flagyl] 500 mg tablet 500 mg PO BID Qty: 28 RF: 0 acetaminophen-codeine [Tylenol-Codeine #3] 300-30 mg tablet 1 tab PO Q4-6H PRN (Reason: pain) Qty: 20 RF: 0 ibuprofen 600 mg tablet 600 mg PO TID PRN (Reason: pain) Qty: 30 RF: 2
--- NOTE | 2020-10-28 10:39 | DI.CT.S_ITS ---
PROCEDURE: CT ABDOMEN PELVIS W CON INDICATIONS: right flank and lower quad pain TECHNIQUE: After the administration of intravenous contrast, axial sections acquired from the lung bases to the pubic symphysis. Coronal and sagittal reformats were performed. For radiation dose reduction, the following was used: automated exposure control, adjustment of mA and/or kV according to patient size. COMPARISON: [facility], , CT ABDOMEN/PELVIS WITH CONTRAST, 03/19/2018, 21:36. FINDINGS: Image quality: Excellent. Lung bases: Unremarkable. Heart: No significant findings. ABDOMEN: Liver: Unremarkable. Gallbladder: Gallbladder is normal. Biliary ducts: Unremarkable. Pancreas: Unremarkable. Spleen: Unremarkable. Adrenal Glands: Unremarkable. Kidneys and Ureters: There are multiple foci of decreased enhancement of kidneys bilaterally, compatible with pyelonephritis. Small 2 mm nonobstructive stones are seen in kidneys bilaterally. No hydronephrosis. There is perinephric stranding bilaterally and trace perinephric fluid. Stomach and Bowel: Appendix is normal. There is a large amount of stool in colon. Stomach, small bowel loops, and colon are unremarkable. Peritoneum: No abnormal intraperitoneal fluid. No free air. Ventral Wall: No hernias. Abdominal Nodes: No retroperitoneal or mesenteric adenopathy by size criteria. Vessels: Aorta and inferior vena cava are normal in size. PELVIS: Pelvic Organs: Uterus is unremarkable. There are physiological cyst in the left ovary. Right ovary is grossly normal. No pathological free-fluid in the cul-de-sac.. Bladder: Unremarkable. Pelvic Nodes: No enlarged lymph nodes. Miscellaneous: No hernias are seen. Bones: Unremarkable. IMPRESSION: 1. Pyelonephritis bilaterally, worse in the right kidney than left kidney. 2. Nonobstructive renal calculi bilaterally. 3. Normal appendix. The result was discussed with Dr. Ochoa. Dictated by: Riddhi Ewing M.D. on 10/28/2020 at 12:04 Approved by: Riddhi Ewing M.D. on 10/28/2020 at 12:13
[2020-10-28 10:48] LABS: Bacteria Urine Many (>30); Culture Indicated Urine Specimen Cultured; RBC Urine 1-5/HPF (0-5/HPF); Squamous Epithelial Cell Urine 1-5 /HPF (0-5/HPF); WBC Urine >100/HPF (0-5/HPF)
[2020-10-28 10:53] LABS: Add Manual Diff / Slide Review NO; Basophils Absolute Auto 100 /uL (0-100); Basophils Percent Auto 0.3 % (0-2); Eosinophils Absolute Auto 0 /uL (0-450); Eosinophils Percent Auto 0.1 % (2-4); Hematocrit 39.8 % (36-46); Hemoglobin 13.4 g/dL (12.0-16.0); Lymphocytes Absolute Auto 900 /uL (1100-4500); Lymphocytes Percent Auto 4.7 % (25-40); Mean Corpuscular HGB Conc 33.8 % (30-36); Mean Corpuscular Hemoglobin 30.4 PG (26-34); Mean Corpuscular Volume 89.9 fL (80-100); Monocytes Absolute Auto 1600 /uL (0-900); Neutrophils Absolute Auto 15700 /uL (1500-7000); Neutrophils Percent Auto 85.9 % (50-75); Platelet Count 211 X10^3/uL (150-400); Red Blood Cell Count 4.43 X10^6/uL (4.0-5.2); Red Cell Distribution Width 12.8 % (11.6-14.8); White Blood Cell Count 18.2 X10^3/uL (4.5-11.0)
[2020-10-28 11:07] LABS: Lactate (Lactic Acid) 2.2 mmol/L (0.7-2.1)
[2020-10-28 11:08] LABS: Alanine Aminotransferase 25 IU/L (<35); Albumin 3.5 g/dL (3.5-5.0); Albumin Globulin Ratio 1.1 (1.0-2.8); Alkaline Phosphatase 76 U/L (38-126); Aspartate Aminotransferase 26 IU/L (14-36); BUN Creatinine Ratio 15.3 (6-22); Bilirubin Total 0.5 mg/dL (0.2-1.3); Blood Urea Nitrogen 11 mg/dL (7-17); Calcium 8.8 mg/dL (8.4-10.2); Carbon Dioxide 26 mmol/L (22-32); Chloride 102 mmol/L (98-107); Estimated Glomerular Filt Rate > 60.0 mL/min (>60); Globulin 3.3 g/dL (1.7-4.1); Glucose 119 mg/dL (70-100); HEMOLYSIS < 15 (0-50); Lipase 20 U/L (23-300); Potassium 3.7 mmol/L (3.4-5.1); Sodium 133 mmol/L (137-145); Total Protein 6.8 g/dL (6.3-8.2)
[2020-10-28] MEDS: ONDANSETRON 4 MG/2 ML INJ IV (11:14)
[2020-10-28] MEDS: KETOROLAC 30 MG/ML VIAL IV (11:14)
[2020-10-28] MEDS: SODIUM CHLORIDE 0.9% 500 ML 1000 ML IV (11:15)
[2020-10-28] MEDS: cefTRIAXone 1,000 MG in SODIUM CHLORIDE 0.9% 100 ML 200 ML IV (11:15)
[2020-10-28] MEDS: SODIUM CHLORIDE 0.9% 1,000 ML 1000 ML IV (12:31)
[2020-10-28 12:50] LABS: Reflexed Lactate in 2 Hours Y
[2020-10-28 13:26] LABS: Lactate 2HR (Lactic Acid Rflx) 0.6 mmol/L (0.7-2.1)
== END 2020-10-28 13:51 | disposition home or self-care (01) ==
PROVIDERS: Emergency Provider Emergency Medicine
DX: N10 Acute pyelonephritis (principal); R00.0 Tachycardia, unspecified
CPT/HCPCS: 36415; 74177; 80053; 81003; 81015; 81025; 83605; 83690; 85025; 87040; 87077; 87086; 87186; 93005; 93010; 96361; 96365; 96375; 99284; J0696; J1885; J2405; Q9967